=== PATIENT | male | born 1995 | race Hispanic/Latino ===

== ENCOUNTER 2021-08-20 11:43 | Emergency (ER) | payer OTHER, SELFPAY ==
[~2021-08-20 11:43] MED LIST: Iopamidol-370 76% 500 ML 1 ML ONE
== END 2021-08-20 13:55 | disposition home or self-care (01) ==
LOC: ERS 11:43
DX: S80.211A Abrasion, right knee, initial encounter (principal); S20.411A Abrasion of right back wall of thorax, initial encounter; R07.81 Pleurodynia; V43.62XA Car passenger injured in collision with other type car in traffic accident, initial encounter
CPT/HCPCS: 74177; 93005